=== PATIENT | male | born 1985 | race Caucasian/White ===

== ENCOUNTER 2017-08-15 12:06 | Emergency (ER) | payer OTHER ==
--- NOTE | 2017-08-15 12:52 | EDPHY ---
H & P Time Seen by Provider: 08/15/17 12:32 HPI/ROS: CHIEF COMPLAINT: Left medial knee pain HISTORY OF PRESENT ILLNESS: 32-year-old male complaining of left medial knee pain after he was playing soccer last evening sustained a valgus stress. He is able to bear partial weight only. He is using a friend's crutches. He has limited range of motion secondary to pain. Unable to assess whether instability or not as he is unable to bear full weight. No direct trauma or fall. No proximal pain or injury. No paresthesia. PRIMARY CARE PROVIDER: REVIEW OF SYSTEMS: A ten point review of systems was performed and is negative with the exception of the items mentioned in the HPI PHYSICAL EXAM (Prior to examination, patient consented to physical exam, hands were washed and my usual and customary physical exam procedures followed) 1) GENERAL: Well-developed, well-nourished, alert and oriented. Appears to be in no acute distress. 2) HEAD: Normocephalic 3) HEENT: Pupils equal, round, reactive to light bilaterally. 4) LUNGS: Breathing comfortably. 5) MUSCULOSKELETAL: Exam of the left knee shows no visible signs of trauma. . Tender to palpation medial aspect of knee. No gross instability however this is an incomplete evaluation given the patient's pain level limited range of motion. He is keeping the knee extended approximately 160 degrees. Compartments are soft. 6) SKIN: Intact 7) VASCULAR: DP,PT pulses and cap refill present and brisk distally DIFFERENTIAL DIAGNOSIS: in no particular order including but not limited to fracture, sprain, compartment syndrome, septic arthritis, DVT [Procedure: Crutches Patient has his own pre-hospital crutches, observed crutch walking with success. Procedure: Splint A knee immobilizer splint was applied by ER natural gas technician. After application of the splint I returned and re-examined the patient. The splint was adequately immobilizing the joint and distal to the splint the patient's circulation and sensation were intact. Patient shows no signs of compartment syndrome. Was given orthopedic precautions. MEDICAL DECISION MAKING Serial evaluations performed on patient. I discussed the limitations of x-ray in diagnosis of knee pain and injury. At this time I do not think that emergent MRI is currently indicated. However, I have recommended follow-up with Orthopedic surgery and provided this referral information. Informed the patient that outpatient MRI may be indicated. Doubt septic arthritis. Doubt compartment syndrome. Doubt DVT. I saw this patient independently based on established practice protocols. Care of patient under supervision of secondary supervising physician Dr Langston . Smoking Status: Current some day smoker Constitutional: Initial Vital Signs Temperature (C) 36.5 C 08/15/17 12:07 Heart Rate 88 08/15/17 12:07 Respiratory Rate 16 08/15/17 12:07 Blood Pressure 124/72 H 08/15/17 12:07 O2 Sat (%) 94 08/15/17 12:07 O2 Delivery Mode Room Air Allergies/Adverse Reactions: No Known Allergies Allergy (Unverified 04/03/14 20:16) Home Medications: Medication Instructions Recorded Codseine Cough Syrup 04/03/14 Ondansetron Odt [Zofran Odt 4 mg 4 mg PO Q4 PRN #20 tab 04/03/14 (RX)] Zpack 04/03/14 Hydrocodone/APAP 5/325 [[place] 1 tab PO Q6 PRN #7 tab 08/15/17 5/325 (RX)] MDM/Departure - MDM Imaging Results: Imaging Impressions Knee X-Ray 08/15/17 12:10 Impression: Normal left knee series. - Depart Disposition: Home, Routine, Self-Care Clinical Impression: Left medial knee pain Condition: Good Instructions: Knee Pain (ED) Additional Instructions: Return to the ER immediately if you experience discoloration, have worsening pain, numbness, tingling, or any other symptoms that concern you. If you received x-rays in the emergency department today, be advised, that ligamentous , tendon, muscular, and other non-bony injury cannot be fully ruled out. Try to keep your affected extremity elevated above the level of your chest, and keep cold packs on the affected area, for the next 48 hours. Prescriptions: Hydrocodone/APAP 5/325 [[place] 5/325 (RX)] 1 tab PO Q6 PRN #7 tab PRN Reason: Pain, Severe Referrals: Norman Tse MD [Medical Doctor] - 2-3 days, call for appt.
[2017-08-15 13:09] VITALS: BP 126/88
== END 2017-08-15 13:09 | disposition home or self-care (01) ==
DX: M25.562 Pain in left knee (principal); F17.200 Nicotine dependence, unspecified, uncomplicated
CPT/HCPCS: L1830